=== PATIENT | female | born 1970 | race Caucasian/White ===

== ENCOUNTER 2017-04-05 02:22 | Observation (INO) | payer OTHER ==
[~2017-04-05] VITALS: Ht 152.4 cm; Wt 67.8 kg
[2017-04-05] VITALS (12 sets, daily range): BP systolic 105–189; BP diastolic 65–96; PULSE 67–113; RESP 16–20; TEMP 96.8–98.4; O2SAT 95–100
[~2017-04-05 02:22] MED LIST: ECASA PO; METO25 PO; ZOLO20CO PO
[2017-04-05] MEDS ORDERED: METO25TA3 PO (02:44)
[2017-04-05] MEDS ORDERED: ASPI325T PO (02:44)
[2017-04-05] MEDS ORDERED: ZOLO25TA PO (02:44)
[2017-04-05] MEDS ORDERED: ASPIRIN 81 MG CHEW TAB PO ONE (02:45)
[2017-04-05] MEDS ORDERED: SODIUM CHLORIDE 0.9% FLUSH 10 ML FLUSH IVF PRN (02:45)
--- NOTE | 2017-04-05 02:45 | PD ---
HPI Chief Complaint: chest pain Time Seen by Provider: 02:37 Travel History International Travel<30 days: No Contact w/Intl Traveler<30days: No Traveled to known affect area: No History of Present Illness HPI 47-year-old female presents to the emergency department by private transportation for evaluation of chest pain since approximate 6 PM Monday evening. Pain is been persistent. Some referred pain to the left shoulder/ neck area. Patient also complains of some shortness of breath. No referred back or abdominal pain. No sweats. No nausea vomiting. Patient has history of previous stroke 07/2015. Patient had a loop recorder placed at that time. Patient has history of factor VIII deficiency. Patient takes aspirin 325 mg daily. Last dose of aspirin was Monday morning. Patient took alprazolam and metoprolol prior to arrival to the emergency department. Patient reports pain as 4/10 in intensity. PFSH Past Medical History Narrative Medical CVA, factor VII coagulopathy kidney stones loop recorder hysterectomy; alcohol use; nursing notes reviewed Arthritis: No Asthma: No Autoimmune Disease: No Blood Disorders: Yes (H/O rectal bleed) Anxiety: No Depression: No Heart Rhythm Problems: No Cancer: No Cardiovascular Problems: No High Cholesterol: No Chemotherapy: No Chest Pain: No Congestive Heart Failure: No COPD: No Cerebrovascular Accident: Yes (TIA) Diminished Hearing: No Endocrine: No Gastrointestinal Disorders: Yes GERD: No Glaucoma: No Genitourinary: Yes Headaches: No Hepatitis: No Hiatal Hernia: No Hypertension: No Immune Disorder: No Kidney Stones: Yes Musculoskeletal: No Neurologic: No Psychiatric: No Respiratory: No Immunizations Current: No Myocardial Infarction: No Radiation Therapy: No Renal Failure: No Seizures: No Sickle Cell Disease: No Sleep Apnea: No Thyroid Disease: No Ulcer: No Past Surgical History Abdominal Surgery: Yes (Tummy tuck) AICD: No Cardiac Surgery: Yes (Loop recorder) Ear Surgery: No Endocrine Surgery: No Eye Surgery: No Genitourinary Surgery: No Gynecologic Surgery: No Hysterectomy: Yes (LOOP RECORDER) Joint Replacement: No Oral Surgery: No Pacemaker: No Thoracic Surgery: No Other Surgery: Yes Social History Alcohol Use: Yes (1-2 beers/week) Tobacco Use: No Substance Use: No Allergies-Medications (Allergen,Severity, Reaction): Coded Allergies: Sulfa (Sulfonamide Antibiotics) (Unverified Allergy, Severe, HIVES, ) amoxicillin (Unverified Allergy, Severe, Hives, 04/05/17) sertraline (Verified Allergy, Intermediate, face redness , BP and HR accelerated, 04/05/17) Reported Meds & Prescriptions Reported Meds & Active Scripts Active Flexeril (Cyclobenzaprine HCl) 5 Mg Tab 5 Mg PO TID [place] (Hydrocodone-Acetaminophen) 10-325 Mg Tab 1 Tab PO Q6H PRN Protonix (Pantoprazole Sodium) 40 Mg Tab 40 Mg PO DAILY Reported Aspirin 325 Mg Tab 325 Mg PO DAILY Zoloft (Sertraline HCl) 25 Mg Tab 25 Mg PO DAILY Metoprolol Tartrate 25 Mg Tab 12.5 Mg PO DAILY Review of Systems Except as stated in HPI: all other systems reviewed are Neg General / Constitutional: No: Fever, Chills HENT: No: Congestion Cardiovascular: Positive: Chest Pain or Discomfort Respiratory: No: Shortness of Breath Gastrointestinal: No: Abdominal Pain Genitourinary: No: Flank Pain Musculoskeletal: No: Edema Neurologic: No: Weakness Psychiatric: No: Mood Disorder Hematologic/Lymphatic: No: Lymph Node Enlargement Physical Exam Narrative GENERAL: Well-developed well-nourished female in no acute distress or respiratory distress. SKIN: Warm and dry. HEAD: Normocephalic. EYES: No scleral icterus. No injection or drainage. NECK: Supple, trachea midline. No JVD or lymphadenopathy. CARDIOVASCULAR: Regular rate and rhythm without murmurs, gallops, or rubs. RESPIRATORY: Breath sounds equal bilaterally. No accessory muscle use. GASTROINTESTINAL: Abdomen soft, non-tender, nondistended. MUSCULOSKELETAL: No cyanosis, or edema. BACK: Nontender without obvious deformity. No CVA tenderness. Data Data Last Documented VS Vital Signs Date Time Temp Pulse Resp B/P (MAP) Pulse Ox O2 Delivery O2 Flow Rate FiO2 04/05/17 04:37 91 18 131/82 (98) 100 Nasal Cannula 2.00 04/05/17 02:45 98.1 Orders Orders Electrocardiogram (04/05/17 02:37) Basic Metabolic Panel (Bmp) (04/05/17 02:37) Ckmb (Isoenzyme) Profile (04/05/17 02:37) Complete Blood Count With Diff (04/05/17 02:37) Magnesium (Mg) (04/05/17 02:37) Prothrombin Time / Inr (Pt) (04/05/17 02:37) Act Partial Throm Time (Ptt) (04/05/17 02:37) Troponin I (04/05/17 02:37) Chest, Single Ap (04/05/17 02:37) Ecg Monitoring (04/05/17 02:37) Bilateral Bp Monitoring (04/05/17 02:37) Iv Access Insert/Monitor (04/05/17 02:37) Oximetry (04/05/17 02:37) Oxygen Administration (04/05/17 02:37) Aspirin Chew (Aspirin Chew) (04/05/17 02:45) Sodium Chloride 0.9% Flush (Ns Flush) (04/05/17 02:45) Nitroglycerin Sl (Nitrostat Sl) (04/05/17 02:45) Sodium Chlor 0.9% 1000 Ml Inj (Ns 1000 M (04/05/17 02:45) Ct Pulmonary Angiogram (04/05/17 ) Iohexol 350 Inj (Omnipaque 350 Inj) (04/05/17 04:17) Potassium Chloride (Kcl) (04/05/17 04:30) Ketorolac Inj (Toradol Inj) (04/05/17 05:15) Morphine Inj (Morphine Inj) (04/05/17 05:15) Ondansetron Inj (Zofran Inj) (04/05/17 05:15) Electrocardiogram (04/05/17 ) Ckmb (Isoenzyme) Profile (04/05/17 05:36) Troponin I (04/05/17 05:36) Admit Order (Ed Use Only) (04/05/17 ) Sounding Device Operator / Telemetry CHATO.Q8H (04/05/17 06:23) Activity Oob With Assistance (04/05/17 06:23) Notify Dr: Other (04/05/17 06:23) Labs Laboratory Tests Test 04/05/17 02:40 04/05/17 05:45 White Blood Count 13.5 TH/MM3 Red Blood Count 4.56 MIL/MM3 Hemoglobin 14.7 GM/DL Hematocrit 42.4 % Mean Corpuscular Volume 93.0 FL Mean Corpuscular Hemoglobin 32.1 PG Mean Corpuscular Hemoglobin Concent 34.6 % Red Cell Distribution Width 11.6 % Platelet Count 414 TH/MM3 Mean Platelet Volume 7.4 FL Neutrophils (%) (Auto) 61.7 % Lymphocytes (%) (Auto) 27.1 % Monocytes (%) (Auto) 8.4 % Eosinophils (%) (Auto) 2.2 % Basophils (%) (Auto) 0.6 % Neutrophils # (Auto) 8.3 TH/MM3 Lymphocytes # (Auto) 3.7 TH/MM3 Monocytes # (Auto) 1.1 TH/MM3 Eosinophils # (Auto) 0.3 TH/MM3 Basophils # (Auto) 0.1 TH/MM3 CBC Comment DIFF FINAL Differential Comment Prothrombin Time 9.7 SEC Prothromb Time International Ratio 0.9 RATIO Activated Partial Thromboplast Time 23.6 SEC Blood Urea Nitrogen 15 MG/DL 13 MG/DL Creatinine 0.79 MG/DL 0.74 MG/DL Random Glucose 104 MG/DL 95 MG/DL Calcium Level 9.3 MG/DL 8.4 MG/DL Magnesium Level 2.1 MG/DL Sodium Level 138 MEQ/L 140 MEQ/L Potassium Level 2.9 MEQ/L 4.3 MEQ/L Chloride Level 103 MEQ/L 108 MEQ/L Carbon Dioxide Level 23.5 MEQ/L 22.4 MEQ/L Anion Gap 12 MEQ/L 10 MEQ/L Estimat Glomerular Filtration Rate 77 ML/MIN 83 ML/MIN Total Creatine Kinase 59 U/L 49 U/L Troponin I LESS THAN 0.02 NG/ML LESS THAN 0.02 NG/ML Human Chorionic Gonadotropin, Quant LESS THAN 1 MIU/ML MDM Medical Decision Making Medical Screen Exam Complete: Yes Emergency Medical Condition: Yes Medical Record Reviewed: Yes Interpretation(s) CK: 59, not elevated; troponin I less than 0.02, not elevated EKG sinus rhythm rate 95 ventricular conduction delay no acute ST elevation or injury pattern change noted nonspecific ST depression CBC & BMP Diagram 04/05/17 02:40 Calcium Level 9.3, Magnesium Level 2.1 Vital Signs Date Time Temp Pulse Resp B/P (MAP) Pulse Ox O2 Delivery O2 Flow Rate FiO2 04/05/17 03:19 77 16 126/78 (94) 100 Nasal Cannula 2.00 04/05/17 03:00 95 16 131/65 (87) 97 Nasal Cannula 2.00 04/05/17 02:55 113 18 153/84 (107) 98 Nasal Cannula 2.00 04/05/17 02:50 112 18 99 Nasal Cannula 2.00 04/05/17 02:45 98.1 112 18 189/96 (127) 99 04/05/17 02:43 95 20 134/85 (101) 100 Nasal Cannula 2.00 04/05/17 02:40 100 Nasal Cannula 2.00 04/05/17 02:40 85 20 134/75 (94) 100 Nasal Cannula 2.00 134/85 (101) CXR: No acute disease process CT pulmonary angiogram: CONCLUSION: 1. No evidence of pulmonary embolism. 2. Abberant right subclavian artery Charles Pablo MD on April 05, 2017 at 4:27 Board Certified Radiologist. This report was verified electronically. Differential Diagnosis Chest pain, ACS, ID, pulmonary embolism, pleurisy, musculoskeletal pain, esophageal spasm, atypical biliary colic Narrative Course Patient placed on compliance monitor IV access obtained specimens collected and sent for resulting patient administered normal saline at maintenance 100 cc per hour aspirin 162 mg by mouth and then ordered sublingual nitroglycerin. After for several nitroglycerin patient noted no improvement of symptoms however following second dose of supplemental oxygen worsened symptoms seem to dissipate Chest x-ray reveals no lobar infiltrate EKG shows no acute ST elevation injury pattern Percent cardiac enzymes are found to be in normal range cardiac enzymes are found to be within normal CBC with automated differential mild leukocytosis with normal automated differential metabolic panel found to be within normal limits In view of patient's history with no ST elevation injury pattern by EKG normal cardiac enzymes symptoms since 6 PM and since 2 PM according to the perceived with CT poor angiogram to evaluate for PE in view of history of hypercoagulable state. CT pulmonary angiogram negative for PE Patient complain increased pain into the chest and to the left breast patient administered Toradol 30 mg IV and morphine sulfate 2 mg IV with symptomatic improvement Patient with history of CVA, hypertension, recorder, factor VIII hypercoagulable state will admit to chest pain center per protocol Patient discussed with will place and chest pain center per protocol Physician Communication Physician Communication discussed with [facility] for INSIDE TESTER Diagnosis Primary Impression: Chest pain Additional Impression: Hypokalemia Admitting Information Admitting Physician Requests: Observation Scripts Cyclobenzaprine (Flexeril) 5 Mg Tab 5 MG PO TID for Muscle Spasm, #30 TAB 0 Refills Prov: Lamin Li MD 04/05/17 Hydrocodone-Acetaminophen ([place]) 10-325 Mg Tab 1 TAB PO Q6H Y for PAIN, #20 TAB 0 Refills Prov: Lamin Li MD 04/05/17 Pantoprazole (Protonix) 40 Mg Tab 40 MG PO DAILY for Reflux, #30 TAB 0 Refills Prov: Maxine Ramos 04/05/17 Lucinda Guzman MD Apr 05, 2017 02:45
[2017-04-05] MEDS: SODIUM CHLOR 0.9% 1000 ML INJ 1,000 ML IV SCH ×2 (02:47→12:45)
[2017-04-05] MEDS: NITROGLYCERIN 0.4 MG SL 25 TABS/BTL SL SCH ×3 (02:51→03:30)
[2017-04-05 02:54] LABS: AUTOMATED NEUTROPHIL # 8.3 TH/MM3 (1.8-7.7); BASOPHIL # 0.1 TH/MM3 (0-0.2); BASOPHIL % 0.6 % (0.0-2.0); EOSINOPHIL # 0.3 TH/MM3 (0-0.4); EOSINOPHIL % 2.2 % (0.0-4.0); HEMATOCRIT 42.4 % (35.0-46.0); HEMO FLAGS DIFF FINAL; LYMPH % 27.1 % (9.0-44.0); LYMPHOCYTE # 3.7 TH/MM3 (1.0-4.8); MEAN CORPUSCULAR HEMOGLOBIN 32.1 PG (27.0-34.0); MEAN CORPUSCULAR HGB CONC 34.6 % (32.0-36.0); MONO % 8.4 % (0.0-8.0); NEUT % 61.7 % (16.0-70.0); PLATELET COUNT 414 TH/MM3 (150-450); RED BLOOD COUNT 4.56 MIL/MM3 (4.00-5.30); RED CELL DISTRIBUTION WIDTH 11.6 % (11.6-17.2); WHITE BLOOD COUNT 13.5 TH/MM3 (4.0-11.0)
[2017-04-05 03:07] LABS: APTT (PATIENT) 23.6 SEC (24.3-30.1); INTERNATIONAL NORMALIZED RATIO 0.9 RATIO; PROTHROMBIN TIME - PATIENT 9.7 SEC (9.8-11.6)
[2017-04-05 03:33] LABS: ANION GAP 12 MEQ/L (5-15); BICARBONATE 23.5 MEQ/L (21.0-32.0); BLOOD UREA NITROGEN 15 MG/DL (7-18); CHLORIDE 103 MEQ/L (98-107); CREATINE KINASE 59 U/L (26-192); GLOMERULAR FILTRATION RATE 77 ML/MIN (>89); MAGNESIUM 2.1 MG/DL (1.5-2.5); SODIUM (NA) 138 MEQ/L (136-145)
[2017-04-05 03:35] LABS: POTASSIUM 2.9 MEQ/L (3.5-5.1)
--- NOTE | 2017-04-05 03:46 | RADRPT ---
EXAM DATE/TIME: 04/05/2017 02:52 [facility] COMPARISON: CHEST SINGLE AP, January 23, 2016, 19:37. INDICATIONS : Chest pain. MEDICAL HISTORY : Cerebrovascular disease. SURGICAL HISTORY : Hysterectomy. Loop recorder. ENCOUNTER: Initial ACUITY: 1 day PAIN SCORE: 8/10 LOCATION: Bilateral chest FINDINGS: A single view of the chest demonstrates the lungs to be symmetrically aerated without evidence of mas s, infiltrate or effusion. The cardiomediastinal contours are unremarkable. Osseous structures are intact. CONCLUSION: 1. No acute cardiopulmonary disease. Charles Pablo MD on April 05, 2017 at 3:44 Board Certified Radiologist. This report was verified electronically.
[2017-04-05] MEDS ORDERED: IOHEXOL 350 MG/ML 10 ML VIAL (for RAD DIAG) IVCONTRAST ONE (04:17)
[2017-04-05] MEDS ORDERED: POTASSIUM CHLORIDE 20 MEQ CONTROLLED RELEASE TAB PO ONE (04:30)
--- NOTE | 2017-04-05 04:31 | RADRPT ---
EXAM DATE/TIME: 04/05/2017 04:00 [facility] COMPARISON: No previous studies available for comparison. INDICATIONS : Chest pain. Difficulty breathing. IV CONTRAST: 75 cc Omnipaque 350 (iohexol) IV RADIATION DOSE: 14.03 CTDIvol (mGy) MEDICAL HISTORY : Cerebrovascular disease. SURGICAL HISTORY : Hysterectomy. ENCOUNTER: Initial ACUITY: 1 day PAIN SCALE: 6/10 LOCATION: Bilateral chest TECHNIQUE: Volumetric scanning of the chest was performed using a pulmonary embolism protocol MIP images were re constructed. Using automated exposure control and adjustment of the mA and/or kV according to patien t size, radiation dose was kept as low as reasonably achievable to obtain optimal diagnostic quality images. DICOM format image data is available electronically for review and comparison. Follow-up recommendations for detected pulmonary nodules are based at a minimum on nodule size and pa tient risk factors according to Fleischner Society Guidelines. FINDINGS: Examination of the pulmonary vasculature demonstrates good filling of the main, lobar and segmental b ranches. There are no filling defects to suggest pulmonary embolism. Multiplanar reconstructions are also unremarkable. There is subsegmental atelectasis in the left base. No pulmonary nodules are identified. Diffusion we ighted imaging demonstrates no abnormality. An aberrant right subclavian artery is present. Coronary artery calcifications are not present. No abnormally enlarged lymph nodes are identified. CONCLUSION: 1. No evidence of pulmonary embolism. 2. Abberant right subclavian artery Charles Pablo MD on April 05, 2017 at 4:27 Board Certified Radiologist. This report was verified electronically.
[2017-04-05] MEDS ORDERED: ONDANSETRON HCL 4 MG/2 ML VIAL IV PUSH ONE (05:15)
[2017-04-05] MEDS ORDERED: MORPHINE SULFATE 4 MG/ML INJ IV PUSH ONE (05:15)
[2017-04-05] MEDS ORDERED: KETOROLAC TROMETHAMINE 30 MG/ML (IVP) VIAL IV PUSH ONE (05:15)
[2017-04-05 06:20] LABS: CREATINE KINASE 49 U/L (26-192)
[2017-04-05] MEDS ORDERED: REGADENOSON INJ 0.4 MG/5 ML SYR IV ONE (06:25)
[2017-04-05] MEDS: POTASSIUM CHLOR 20 MEQ PREMIX 100 ML IV SCH ×2 (07:35→10:04)
[2017-04-05] MEDS ORDERED: PANTOPRAZOLE SOD 40 MG DELAYED RELEASE TAB PO ONE (09:00)
[2017-04-05] MEDS ORDERED: ALUMINUM/MAGNESIUM/SIMETH 30 ML CUP PO ONE ×2 (09:00→16:15)
[2017-04-05] MEDS ORDERED: LIDOCAINE HCL 5% PATCH T-DERMAL ONE (09:30)
[2017-04-05] MEDS ORDERED: SERTRALINE HCL 50 MG TAB PO SCH (09:30)
--- NOTE | 2017-04-05 09:31 | HHI.HP ---
[facility] Service [facility] Primary Care Physician Feliz Pop, DO Admission Diagnosis chest pain Diagnoses: (1) Chest pain Diagnosis: Principal (2) Hypokalemia Diagnosis: Principal (3) Leukocytosis Diagnosis: Principal Chief Complaint: chest pain Travel History International Travel<30 Days: No Contact w/Intl Traveler <30 Da: No Traveled to Known Affected Are: No History of Present Illness Written by Maxine Ramos PA-C acting as scribe for Dr. Li on 04/05/17 at 0931. 47-year-old female with history of Factor VIII deficiency, CVA, HLD, and anxiety presents with complaint of chest pain and is under observation in chest pain center. is at bedside. Patient presented to ED via private vehicle. Patient states she started to experience pain over the left side of her chest at 6 PM yesterday when she was lying on floor watching TV. The patient states she has had some mild pain and swelling in her left breast for the past 2 weeks and was evaluated by the plastic surgeon, but states there was no issue with the breast implant. The patient states the pain she had yesterday was different from prior pain. She states after the pain started last night she decided to go exercise on a stationary bike for 40 minutes but this did not worsen the pain. She states when she did return home though the intensity of pain was increased. The pain has been constant. She admits to having had 10/10 pain in the left breast but also admits to "sharp, stabbing, shooting" pain below the breast. States her chest pain is currently a 5/10 also admits to some pain in the back. She states she can't lye on her front or sides but does not admit to exacerbation of pain with movement to either side. She said she held an ice pack to her left breast yesterday which helped the breast pain but not the pain below the breast. She states she cannot breathe deeply due to pain but denies any actual shortness of breath. Denies any lightheadedness, nausea, vomiting. She states she was given 2 nitroglycerin in the ED but felt better after the morphine. She states she feels better when sitting up. She does admit to having done a [employer] class 2-3 days ago working out her chest and arms a lot. She denies any nipple discharge from the left breast and states she had a normal mammogram one month ago. States she has been compliant with her medications and additionally took magnesium before bed last night. Patient states she did drink half a can of her 's [employer] energy drink yesterday morning and the day before. Denies leg swelling. Patient had normal ETT on 12/24/15. Review of Systems Except as stated in HPI: all other systems reviewed are Neg Past Family Social History Past Medical History Factor VIII deficiency CVA 2015, left side of face affected at that time Anxiety History of rectal bleed, but colonoscopy did not reveal any abnormalities HLD, last LDL 149. Past Surgical History Loop recorder followed by [facility] Breast augmentation [facility] 15 years ago Reported Medications Reported Meds & Active Scripts Active Reported Aspirin 325 Mg Tab 325 Mg PO DAILY Zoloft (Sertraline HCl) 25 Mg Tab 25 Mg PO DAILY Metoprolol Tartrate 25 Mg Tab 12.5 Mg PO DAILY Allergies: Coded Allergies: Sulfa (Sulfonamide Antibiotics) (Unverified Allergy, Severe, HIVES, ) amoxicillin (Unverified Allergy, Severe, Hives, 04/05/17) sertraline (Verified Allergy, Intermediate, face redness , BP and HR accelerated, 04/05/17) Family History Brother is 58 years old; had MS one year ago. Social History Very rarely drinks alcohol. Denies tobacco use. Denies illicit drug use. (Smoked marijuana only once or twice as a teenager.) Physical Exam Vital Signs Vital Signs Date Time Temp Pulse Resp B/P (MAP) Pulse Ox O2 Delivery O2 Flow Rate FiO2 04/05/17 07:56 04/05/17 07:31 76 18 105/70 (82) 99 Nasal Cannula 2.00 04/05/17 07:28 71 18 99 Nasal Cannula 2.00 04/05/17 06:25 68 16 116/70 (85) 96 Nasal Cannula 2.00 04/05/17 04:37 91 18 131/82 (98) 100 Nasal Cannula 2.00 04/05/17 03:19 77 16 126/78 (94) 100 Nasal Cannula 2.00 04/05/17 03:00 95 16 131/65 (87) 97 Nasal Cannula 2.00 04/05/17 02:55 113 18 153/84 (107) 98 Nasal Cannula 2.00 04/05/17 02:50 112 18 99 Nasal Cannula 2.00 04/05/17 02:45 98.1 112 18 189/96 (127) 99 04/05/17 02:43 95 20 134/85 (101) 100 Nasal Cannula 2.00 04/05/17 02:40 100 Nasal Cannula 2.00 04/05/17 02:40 85 20 134/75 (94) 100 Nasal Cannula 2.00 134/85 (101) Physical Exam GENERAL: This is a well-nourished, well-developed patient, in no apparent distress. SKIN: No rashes, ecchymoses or lesions. Warm and dry. HEAD: Atraumatic. Normocephalic. EYES: Pupils equal round and reactive. No scleral icterus. No injection or drainage. CHEST: Significant reproducible tenderness below the left breast. BREAST EXAM: Breasts appear symmetrical without swelling. No erythema. CARDIOVASCULAR: Regular rate and rhythm without murmurs, gallops, or rubs. RESPIRATORY: Clear to auscultation. Breath sounds equal bilaterally. No wheezes , rales, or rhonchi. GASTROINTESTINAL: Abdomen soft, non-tender, nondistended. No guarding. MUSCULOSKELETAL: No lower extremity edema bilaterally. Tender over the back. NEUROLOGICAL: Awake and alert. Motor grossly within normal limits. Five out of 5 muscle strength in the extremities. Normal speech. Laboratory Laboratory Tests Test 04/05/17 02:40 04/05/17 05:45 White Blood Count 13.5 Red Blood Count 4.56 Hemoglobin 14.7 Hematocrit 42.4 Mean Corpuscular Volume 93.0 Mean Corpuscular Hemoglobin 32.1 Mean Corpuscular Hemoglobin Concent 34.6 Red Cell Distribution Width 11.6 Platelet Count 414 Mean Platelet Volume 7.4 Neutrophils (%) (Auto) 61.7 Lymphocytes (%) (Auto) 27.1 Monocytes (%) (Auto) 8.4 Eosinophils (%) (Auto) 2.2 Basophils (%) (Auto) 0.6 Neutrophils # (Auto) 8.3 Lymphocytes # (Auto) 3.7 Monocytes # (Auto) 1.1 Eosinophils # (Auto) 0.3 Basophils # (Auto) 0.1 CBC Comment DIFF FINAL Differential Comment Prothrombin Time 9.7 Prothromb Time International Ratio 0.9 Activated Partial Thromboplast Time 23.6 Blood Urea Nitrogen 15 Creatinine 0.79 Random Glucose 104 Calcium Level 9.3 Magnesium Level 2.1 Sodium Level 138 Potassium Level 2.9 Chloride Level 103 Carbon Dioxide Level 23.5 Anion Gap 12 Estimat Glomerular Filtration Rate 77 Total Creatine Kinase 59 49 Troponin I LESS THAN 0.02 LESS THAN 0.02 Result Diagram: 04/05/17 0240 04/05/17 0240 Imaging Last Impressions Chest X-Ray 04/05/177 Signed Impressions: Service Date/Time: Wednesday, April 05, 2017 02:52 - CONCLUSION: 1. No acute cardiopulmonary disease. Charles Pablo MD CT Angiography 04/05/17 0000 Signed Impressions: Service Date/Time: Wednesday, April 05, 2017 04:00 - CONCLUSION: 1. No evidence of pulmonary embolism. 2. Abberant right subclavian artery Charles Pablo MD Caprini VTE Risk Assessment Caprini VTE Risk Assessment: Mod/High Risk (score >= 2) Caprini Risk Assessment Model Point Value = 1 Point Value = 2 Point Value = 3 Point Value = 5 Age 41-60 Minor surgery BMI > 25 kg/m2 Swollen legs Varicose veins or History of unexplained or recurrent spontaneous Oral contraceptives or hormone replacement Sepsis (< 1 month) Serious lung disease, including pneumonia (< 1 month) Abnormal pulmonary function Acute myocardial infarction Congestive heart failure (< 1 month) History of inflammatory bowel disease Medical patient at bed rest Age 61-74 Arthroscopic surgery Major open surgery (> 45 min) Laparoscopic surgery (> 45 min) Malignancy Confined to bed (> 72 hours) Immobilizing plaster cast Central venous access Age >= 75 History of VTE Family history of VTE Factor V Leiden Prothrombin [id number] Lupus anticoagulant Anticardiolipin antibodies Elevated serum homocysteine Heparin-induced thrombocytopenia Other congenital or acquired thrombophilia Stroke (< 1 month) Elective arthroplasty Hip, pelvis, or leg fracture Acute spinal cord injury (< 1 month) Prophylaxis Regimen Total Risk Factor Score Risk Level Prophylaxis Regimen 0-1 Low Early ambulation 2 Moderate Order ONE of the following: *Sequential Compression Device (SCD) *Heparin 5000 units SQ BID 3-4 Higher Order ONE of the following medications: *Heparin 5000 units SQ TID *Enoxaparin/Lovenox 40 mg SQ daily (WT < 150 kg, CrCl > 30 mL/min) *Enoxaparin/Lovenox 30 mg SQ daily (WT < 150 kg, CrCl > 10-29 mL/min) *Enoxaparin/Lovenox 30 mg SQ BID (WT < 150 kg, CrCl > 30 mL/min) AND/OR *Sequential Compression Device (SCD) 5 or more Highest Order ONE of the following medications: *Heparin 5000 units SQ TID (Preferred with Epidurals) *Enoxaparin/Lovenox 40 mg SQ daily (WT < 150 kg, CrCl > 30 mL/min) *Enoxaparin/Lovenox 30 mg SQ daily (WT < 150 kg, CrCl > 10-29 mL/min) *Enoxaparin/Lovenox 30 mg SQ BID (WT < 150 kg, CrCl > 30 mL/min) AND *Sequential Compression Device (SCD) Assessment and Plan Assessment and Plan 47 year old female with: Chest pain: Patient has significant reproducible tenderness over the ribs below the left breast and is tender over L breast as well but cannot give a clear answer as to whether this was the same exact pain she was feeling yesterday. EKGs 2 personally interpreted. EKG #1 with subtle anterior and lateral ST depressions and nonspecific T-wave abnormalities in the inferior leads which cleared on subsequent EKG which appears without ischemic abnormalities. CK normal 2. Troponin x 2 less than 0.02. Chest x-ray without acute disease. CT pulmonary angiogram negative for PE. -Telemetry -Patient to undergo nuclear stress test. -Received 162 mg of aspirin this morning. Refused last dose of nitroglycerin in the ED (received 2 doses). Received Toradol and morphine in the ED. 40 mg Protonix ordered this morning. Lidocaine patch ordered. -BP currently controlled. Hold metoprolol this morning. Hypokalemia: K+ 2.9. Magnesium normal 2.1. Patient received 40 mEq by mouth KCl and 40 mEq IV KCl. -Recheck K+ level this morning Leukocytosis: White blood cell count 13.5. Likely stress reaction. Neutrophil count normal. No evidence of infection. Reduced GFR: 77. Last GFR on record 85 on 01/23/16. -Continue IV NS @ 100 mL/hr as patient received contrast and is NPO. -Recheck BMP this morning Anxiety: Continue Zoloft DVT prophylaxis: SCDs. Discharge disposition: Home in stable condition Diet: Heart healthy Activity: Avoid strenuous activity, lifting, or bending. Advised against wrapping her chest and advised to take deep breaths. Medications: Prescription for Protonix, muscle relaxants, pain medication. Resume home medications. Advised against driving while taking pain medication or muscle relaxants and advised not to take them together due to sedation. Follow-up: PCP. Patient advised to follow up outpatient with plastic surgeon regarding breast implant. Advised to follow up with PCP/pest control service sales agent regarding starting medication for HLD. This note was transcribed by court Ramos. I, Lamin Li, personally performed the history, physical exam, and medical decision making; and confirmed the accuracy of information in the transcribed note. Authenticated by Lamin Li on 1321 on 04/05/17. I contacted Dr. Johnson from gynecology, discussed the case with her, concluded that there are no life- threatening causes for her left breast pain that she is to follow-up with her plastic surgeon regarding this. Pt was also contacted one day post discharge and instructed to f/u with her PCP' s post hospitalization visit regarding her potassium levels, pt verbalized understanding. Discussed Condition With patient Maxine Ramos Apr 05, 2017 09:31 Lamin Li MD Apr 05, 2017 13:22
[2017-04-05] MEDS ORDERED: PILL SPLITTER OTHER PRN (10:15)
[2017-04-05 10:20] LABS: BETA HCG QUANT LESS THAN 1 MIU/ML (0-5)
[2017-04-05 10:49] LABS: BICARBONATE 22.4 MEQ/L (21.0-32.0); POTASSIUM 4.3 MEQ/L (3.5-5.1)
--- NOTE | 2017-04-05 11:12 | EKG ---
Date Performed: 04/05/2017 Time Performed: 05:50:23 PTAGE: 47 years EKG: Sinus rhythm POSSIBLE RIGHT VENTRICULAR CONDUCTION DELAY BORDERLINE ECG PREVIOUS TRACING : 04/05/2017 02.36 Compared to previous tracing,ST changes have improved. DOCTOR: Mike Powers Interpretating Date/Time 04/05/2017 11:11:21
--- NOTE | 2017-04-05 11:13 | EKG ---
Date Performed: 04/05/2017 Time Performed: 02:36:13 PTAGE: 47 years EKG: Sinus rhythm POSSIBLE RIGHT VENTRICULAR CONDUCTION DELAY MODERATE ST DEPRESSION ABNORMAL ECG PREVIOUS TRACING : 01/23/2016 20.14 Since previous tracing, no significant change noted DOCTOR: Mike Powers Interpretating Date/Time 04/05/2017 11:12:42
[2017-04-05] MEDS ORDERED: traMADol HCL 50 MG TAB PO PRN (11:30)
[2017-04-05] MEDS ORDERED: ACETAMINOPHEN/HYDROcodone 325 MG/10 MG TAB PO ONE (13:15)
[2017-04-05] MEDS ORDERED: MORPHINE SULFATE 4 MG/ML INJ IM ONE (13:15)
--- NOTE | 2017-04-05 15:29 | RADRPT ---
EXAM DATE/TIME: 04/05/2017 13:28 [place] COMPARISON: No previous studies available for comparison. INDICATIONS : Bilateral chest pain radiating to the left shoulder with dyspnea. Angina. DOSE: 26.1 mCi Tc99m Myoview at stress. 8.8 mCi Tc99m Myoview at rest. 0.4 mg Lexiscan STRESS SYMPTOMS: Dizziness. EJECTION FRACTION: > 70% MEDICAL HISTORY : Stroke. Factor VIII deficiency. SURGICAL HISTORY : Hysterectomy. Loop recorder. [facility]. ENCOUNTER: Initial ACUITY: 1 day PAIN SCALE: 8/10 LOCATION: Bilateral chest TECHNIQUE: The patient underwent pharmacologic stress with infusion of prescribed dose. Continuous ECG tracing was monitored during stress. Gated SPECT imaging was performed after stress and conventional SPECT i maging was performed at rest. The examination was performed on a SPECT/CT scanner, both attenuation and non-corrected datasets were reviewed. FINDINGS: DISTRIBUTION: The maximum perfused segment at stress is in the anterolateral wall. PERFUSION STUDY: The pattern of perfusion at stress is within normal limits. GATED STUDY: There is intact wall motion and thickening without hypokinetic or dyskinetic segments. CONCLUSION: 1. Negative exam. No scintigraphic findings of infarct or ischemia. 2. Excellent wall motion throughout with an estimated ejection fraction of greater than 70%. RISK CATEGORY: Low (<1% Annual Mortality Rate) Jesse Bass MD on April 05, 2017 at 15:26 Board Certified Radiologist. This report was verified electronically.
--- NOTE | 2017-04-05 15:30 | TR ---
Date Performed: 04/05/2017 Time Performed: 13:53:16 DOCTOR: Mike Powers DRUG LIST: CLINICAL HISTORY: REASON FOR TEST: Chest pain REASON FOR ENDING: OBSERVATION: CONCLUSION: Lexiscan stress test was performed under standard four minute protocol. Radionuclid e was injected one minute prior to ending the test. No electrocardiographic abormalities were present to suggest ischemia. Nuclear imaging and interpretation are pending. COMMENTS:
[2017-04-05] MEDS ORDERED: PROT40TA PO (16:01)
--- NOTE | 2017-04-05 16:02 | HHI.DCPOC ---
Discharge Care Plan Diagnosis: (1) Chest pain (2) Leukocytosis (3) Hypokalemia Your Health Problems Are: Chest Pain Goals to Promote Your Health * To prevent worsening of your condition and complications * To maintain your health at the optimal level Directions to Meet Your Goals Take your medications as prescribed Follow your dietary instruction Follow activity as directed Keep your appointments as scheduled Take your immunizations and boosters as scheduled If your symptoms worsen call your PCP, if no PCP go to Urgent Care Center or Emergency Room Smoking is Dangerous to Your Health. Avoid second hand smoke Call the 24-hour hour crisis hotline for domestic abuse at Maxine Ramos Apr 05, 2017 16:02
[2017-04-05] MEDS ORDERED: HYDR-3366 PO (16:05)
[2017-04-05] MEDS ORDERED: CYCL5TAB PO (16:07)
[2017-04-05] MEDS ORDERED: REMOVE OLD LIDOCAINE PATCH T-DERMAL ONE (22:00)
== END 2017-04-05 16:34 | disposition home or self-care (01) ==
LOC: PHED 02:22 → PHEDA 06:24 → PH3A 07:50
PROVIDERS: ADMIT Hospitalist; ATTEND Hospitalist
DX: R07.9 Chest pain, unspecified (principal); D72.829 Elevated white blood cell count, unspecified; E87.6 Hypokalemia; F41.9 Anxiety disorder, unspecified; E78.5 Hyperlipidemia, unspecified; R06.00 Dyspnea, unspecified; Z86.73 Personal history of transient ischemic attack (TIA), and cerebral infarction without residual deficits; D66 Hereditary factor VIII deficiency; N64.4 Mastodynia; R94.31 Abnormal electrocardiogram [ECG] [EKG]; Z79.82 Long term (current) use of aspirin
CPT/HCPCS: 71010; 71275; 78452; 80048; 82550; 83735; 84484; 84702; 85025; 85610; 85730; 93005; 93017; 96361; 96365; 96366; 96375; 99285; A9502; G0378; J1885; J2270; J2405; J2785; J3480; J7030; Q9967